=== PATIENT | female | born 1995 | race Caucasian/White ===

== ENCOUNTER 2017-01-26 11:30 | Outpatient (CLI) | payer OTHER ==
[2017-01-26 12:14] LABS: APPEARANCE,URINE SLIGHTLY-CLOUDY; BILIRUBIN,URINE NEGATIVE (NEGATIVE); GLUCOSE, URINE NEGATIVE (NEGATIVE); KETONES,URINE NEGATIVE (NEGATIVE); LEUKOCYTE ESTERASE,URINE TRACE (NEGATIVE); NITRITE,URINE NEGATIVE (NEGATIVE); PROTEIN,URINE NEGATIVE (NEGATIVE); UROBILINOGEN,URINE NEGATIVE mg/dL (<2.0)
[2017-01-26 12:18] LABS: AMNISURE (ROM) NEGATIVE (NEGATIVE)
--- NOTE | 2017-01-26 12:29 | Non Stress Test Report ---
Non Stress Test Datetime Report Generated by CPN: 01/26/2017 12:29 DEMOGRAPHIC EGA NST: 39.2 INDICATION Indication for Study: Ordered by Provider MONITORING Time on Monitor: 01/26/2017 11:48 Time off Monitor: 01/26/2017 12:22 NST Duration: 34 NST INTERVENTIONS NST Interventions: None Physician Notified NST: Dr Ronald BABY A Movement : Present Contraction Frequency : none FHR Baseline : 135 Accelerations : 15X15 Decelerations : None Variability : Moderate 6-25bpm NST Review: Meets Criteria for Reactive NST NST Review and Verified By : A. Zavaleta RN NST Results: Reactive NST REPORT Report Trigger: Send Report
[2017-01-26 12:31] LABS: URINE BARBITURATES SCREEN NEGATIVE; URINE METHADONE SCREEN NEGATIVE; URINE OPIATES LOW NEGATIVE; URINE PHENCYCLIDINE SCREEN NEGATIVE
== END 2017-01-26 12:37 | disposition home or self-care (01) ==
LOC: LC 11:30
PROVIDERS: ATTEND Obstetrics & Gynecology
PROC: 4A1HXCZ Monitoring of Products of Conception, Cardiac Rate, External Approach (ICD-10-PCS; principal; 2017-01-26)
DX: O47.1 False labor at or after 37 completed weeks of gestation (principal); Z3A.39 39 weeks gestation of pregnancy
CPT/HCPCS: 59025; 80307; 81005; 84112

== ENCOUNTER 2017-01-30 05:49 | Inpatient (IN) | payer OTHER ==
[2017-01-30 06:32] LABS: AMNISURE (ROM) POSITIVE (NEGATIVE)
[2017-01-30 06:33] LABS: APPEARANCE,URINE CLOUDY; BILIRUBIN,URINE NEGATIVE (NEGATIVE); GLUCOSE, URINE NEGATIVE (NEGATIVE); KETONES,URINE NEGATIVE (NEGATIVE); LEUKOCYTE ESTERASE,URINE MODERATE (NEGATIVE); NITRITE,URINE NEGATIVE (NEGATIVE); PROTEIN,URINE NEGATIVE (NEGATIVE); URINE SPECIFIC GRAVITY 1.008; UROBILINOGEN,URINE NEGATIVE mg/dL (<2.0)
[2017-01-30] MEDS ORDERED: RINGERS SOLUTION,LACTATED 1,000 ML IV ONE (06:35)
[2017-01-30 06:50] LABS: URINE BARBITURATES SCREEN NEGATIVE; URINE METHADONE SCREEN NEGATIVE; URINE OPIATES LOW NEGATIVE; URINE PHENCYCLIDINE SCREEN NEGATIVE
[2017-01-30 07:23] LABS: ABSOLUTE BASOPHILS # (AUTO) 0.1 10^3/uL (0.0-0.2); ABSOLUTE EOSINOPHILS # (AUTO) 0.3 10^3/uL (0.0-0.6); ABSOLUTE LYMPHOCYTES (AUTO) 1.9 10^3/uL (0.5-4.7); ABSOLUTE MONOCYTES (AUTO) 0.6 10^3/uL (0.1-1.4); ABSOLUTE NEUT (AUTO) 8.8 10^3/uL (1.7-8.2); BASOPHILS % (AUTO) 0.6 % (0-2); EOSINOPHILS % (AUTO) 2.2 % (0-6); HEMATOCRIT 31.4 % (36.0-47.0); HEMOGLOBIN 10.3 g/dL (12.0-15.5); HGB HCT DIFFERENCE -0.5; LYMPHOCYTES % (AUTO) 16.4 % (13-45); MEAN CORPUSCULAR HGB CONC 32.8 g/dL (32.0-36.0); MEAN CORPUSCULAR VOLUME 76 fl (80-97); MONOCYTES % (AUTO) 5.2 % (3-13); RED BLOOD COUNT 4.12 10^6/uL (3.72-5.28); RED CELL DISTRIBUTION WIDTH 15.7 % (11.5-14.0); SEGMENTED NEUTROPHILS % (AUTO) 75.6 % (42-78); WHITE BLOOD COUNT 11.7 10^3/uL (4.0-10.5)
[2017-01-30] MEDS ORDERED: LIDOCAINE 1% INJ-PF (10 MG/ML) 30 ML SDV ONE (08:00)
[2017-01-30] MEDS ORDERED: MISOPROSTOL 0.2 MG TABLET ONE (08:00)
[2017-01-30] MEDS ORDERED: OXYTOCIN/NORMAL SALINE 20 UNIT/1,000 ML RTUINJ ONE (08:00)
[2017-01-30] MEDS ORDERED: FENTANYL CITRATE INJ/PF 100 MCG/2 ML AMPUL ONE (11:21)
[2017-01-30] MEDS ORDERED: EPHEDRINE SULFATE INJ 50 MG/1 ML AMPULE ONE (11:21)
[2017-01-30] MEDS ORDERED: BUPIVACAINE HCL 0.25 % INJ/PF (2.5 MG/1 ML) 30 ML VIAL ONE (11:22)
[2017-01-30] MEDS ORDERED: FENTANYL/BUPIVACAINE/NS/PF 200 MCG/100 ML RTUINJ EPI ONE (11:22)
[2017-01-30] MEDS ORDERED: PHENYLEPHRINE HCL INJ/PF 10 MG/1 ML SDV ONE (11:22)
--- NOTE | 2017-01-30 13:28 | L&D Progress Notes ---
PROGRESS NOTES Datetime Report Generated by CPN: 01/30/2017 13:28 PROGRESS NOTE Impression: Premature Rupture of Membranes Procedures: Sterile Vag Exam Plan: Continue Present Management; Augmentation Informed Consent Obtained: Vaginal Delivery; Risks, Benefits and Alternatives Discussed Vital Signs : Reviewed; Within Normal Limits Comment: S: reports complete pain relief from epidural placement O: VSS, pit @ 20mu/min, cervix as stated A: PROM-stable, progressing P: continue to reposition, reassess with constant perineal pressure/earlier prn. Anticipate VAGINAL EXAM Dilatation: 8 Dilatation: 4 Effacement: 100 Effacement: 50 Station: -1 Station: 0 Contractions: q2min MEMBRANES Membranes: Ruptured Membranes: Ruptured Amniotic Fluid Color: Clear FETUS A FHR - Baseline: 135 Monitoring: External US Variability: Moderate 6-25bpm Accelerations: 15X15 Decelerations: Early; Variable : 39.6 Presentation: Vertex SIGNATURE SIGNATURE: [id number] SIGNATURE: [id number] SIGNATURE: [id number] Assignment: Brynn Roblero MD Signature: with User ID: [email or web address], Addendum/Amendment: entry for 1256 : with User ID: [email or web address], Addendum/Amendment: entry for 1256
[2017-01-30] MEDS ORDERED: NA PHOS,M-B/NA PHOS,DI-BA (ADULT) 133 ML ENEMA PR PRN (14:29)
[2017-01-30] MEDS ORDERED: GLYCERIN/WITCH HAZEL LEAF 1 EACH MED..PAD TP PRN (14:29)
[2017-01-30] MEDS ORDERED: DIPH/PERTUSS(ACELL)/TETANUS VAC/PF 0.5 ML SYR (>=10YO) IM PRN (14:29)
[2017-01-30] MEDS ORDERED: PROMETHAZINE HCL 25 MG TABLET PO PRN (14:29)
[2017-01-30] MEDS ORDERED: OXYTOCIN/NORMAL SALINE 20 UNIT/1,000 ML RTUINJ IV PRN (14:29)
[2017-01-30] MEDS ORDERED: ACETAMINOPHEN WITH CODEINE #3 TABLET PO PRN (14:29)
[2017-01-30] MEDS ORDERED: MEASLES,MUMPS&RUBELLA VACC/PF 0.5 ML VIAL SUBCUT PRN (14:29)
[2017-01-30] MEDS ORDERED: DIBUCAINE 1% OINTMENT 28 GM TP PRN (14:29)
[2017-01-30] MEDS ORDERED: PROMETHAZINE HCL INJ 25 MG/1 ML VIAL IV PRN (14:29)
[2017-01-30] MEDS ORDERED: DIPHENHYDRAMINE HCL 25 MG CAPSULE PO PRN (14:29)
[2017-01-30] MEDS ORDERED: ACETAMINOPHEN 650 MG SUPP.RECT PR PRN (14:29)
[2017-01-30] MEDS ORDERED: MAGNESIUM HYDROXIDE SUSP 30 ML UDCUP PO PRN (14:29)
[2017-01-30] MEDS ORDERED: PROMETHAZINE HCL 25 MG SUPP.RECT PR PRN (14:29)
[2017-01-30] MEDS ORDERED: BENZOCAINE/MENTHOL AEROSOL SPRAY 56 ML TOP PRN (14:29)
[2017-01-30] MEDS ORDERED: PSEUDOEPHEDRINE HCL 30 MG TABLET PO PRN (14:29)
--- NOTE | 2017-01-30 17:05 | Admission Physical ---
Datetime Report Generated by CPN: 01/30/2017 17:05 CURRENT ADMISSION Chief Complaint: Suspected Ruptured Membranes Indication for Induction: Not Applicable Indication for Induction: Term, Intrauterine ; No Active Labor; Ruptured Membranes Admit Plan: Admit to Unit; Initiate Labor Protocol ALLERGIES Medication Allergies: No Medication Allergies: NKA Latex: No Latex Allergies Food Allergies: N/A Environmental Allergies: N/A OBSTETRICAL HISTORY EDC: 01/31/2017 00:00 : 2 Para: 1 Term: 1 : 0 SAB: 0 IAB: 0 Ectopic: 0 Livin Cesareans: 0 VBACs: 0 Multiple Births: 0 Gestational Diabetes: No Rh Sensitization: No Incompetent Cervix: No MADELIN: No Infertility: No ART Treatment: No Uterine Anomaly: No IUGR: No Hx Previous C/S: No Macrosomia: No Hx Loss/Stillborn: No PIH: No Hx : No Placenta Previa/Abruption: No Depression/PP Depression: No PTL/PROM: No Post Hemorrhage: No Current Procedures: Ultrasound; NST Obstetrical History Comments: G1 baby girl 2013 G2 current SEE RECORDS Alcohol: No Marijuana : No Cocaine: No Other Illicit Drugs: No Cigarettes: Light Tobacco Smoker. 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 Surgery: No Heart Disease: No Hosp/Surgery: No Autoimmune Disorder: No Anesthetic Complications: No Kidney Disease: No Abnormal Pap Smear: No Neuro/Epilepsy: No Psychiatric Disorders: No Other Medical Diseases: No Hepatitis/Liver Disease: No Significant Family History: No Varicosities/Phlebitis: No Trauma/Violence : No Thyroid Dysfunction: No INFECTIOUS HISTORY Gonorrhea: No Genital Herpes: No Chlamydia: No Tuberculosis: No Syphilis: No Hepatitis: No HIV/AIDS Exposure: No Rash or Viral Illness: No HPV: No PHYSICAL EXAM General: Normal HEENT: Normal Neurologic: Normal Thyroid: Deferred Heart: Normal Lungs: Normal Breast: Deferred Back: Normal Abdomen: Normal Genitourinary Exam: Normal Extremities: Normal DTRs: Normal Pelvic Type: Adequate Vital Signs: Reviewed; Within Normal Limits VAGINAL EXAM Dilatation: 8 Dilatation: 4 Effacement: 100 Effacement: 50 Station: -1 Station: 0 Contraction Comments: q2min MEMBRANES Membranes: Ruptured Membranes: Ruptured Amniotic Fluid Color: Clear FETUS A EGA: 39.6 Monitoring: External US FHR- Baseline: 140 Variability: Moderate 6-25bpm Accelerations: 15X15 Decelerations: None FHR Category: Category I Presentation: Vertex PLANS FOR LABOR AND DELIVERY Labor and Delivery: None Pain Management: Epidural Feeding Preference: Both Benefit of Breast Feed Discussed: Yes Circumcision: N/A INFORMED CONSENT Informed Consent Obtained: Vaginal Delivery; Risks, Benefits and Alternatives Discussed Signature: with User ID: [email or web address]
[2017-01-30] MEDS: DOCUSATE SODIUM 100 MG CAPSULE PO SCH (18:28)
[2017-01-30] MEDS: FERROUS SULFATE 325 MG TABLET PO SCH (18:28)
[2017-01-30] MEDS: IBUPROFEN 800 MG TABLET PO SCH (21:55)
[2017-01-30] MEDS: FAMOTIDINE 20 MG TABLET PO SCH (21:56)
[2017-01-31] MEDS: IBUPROFEN 800 MG TABLET PO SCH ×3 (06:13→21:19)
[2017-01-31 07:48] LABS: HEMATOCRIT 32.3 % (36.0-47.0); HEMOGLOBIN 10.4 g/dL (12.0-15.5); HGB HCT DIFFERENCE -1.1; MEAN CORPUSCULAR HEMOGLOBIN 24.6 pg (27.0-33.4); MEAN CORPUSCULAR HGB CONC 32.3 g/dL (32.0-36.0); MEAN CORPUSCULAR VOLUME 76 fl (80-97); RED BLOOD COUNT 4.24 10^6/uL (3.72-5.28); RED CELL DISTRIBUTION WIDTH 15.6 % (11.5-14.0)
[2017-01-31 09:06] VITALS: BP 104/63
[2017-01-31] MEDS: SENNOSIDES/DOCUSATE 8.6-50 MG 1 EACH TABLET PO SCH (09:33)
[2017-01-31] MEDS: FERROUS SULFATE 325 MG TABLET PO SCH ×2 (09:34→17:44)
[2017-01-31] MEDS: DOCUSATE SODIUM 100 MG CAPSULE PO SCH ×2 (09:34→17:44)
[2017-01-31] MEDS: FAMOTIDINE 20 MG TABLET PO SCH ×2 (09:34→21:19)
[2017-01-31] MEDS: PRENATAL VITAMIN W-O CA NO5/FE FUMARATE/FA CAPSULE PO SCH (09:35)
--- NOTE | 2017-01-31 10:55 | PDOC PROGRESS REPORT ---
Subjective-OB Subjective: Post Delivery Day: 22 year old. Denies any needs at this time Doing well, no c/o, breast feeding, eating well, voiding Physical Exam (OB) Vital Signs: Temp Pulse Resp BP Pulse Ox 98.1 F 71 14 104/63 99 01/31/17 08:35 01/31/17 08:35 01/31/17 08:35 01/31/17 08:35 01/31/17 08:35 Intake & Output 01/30/17 01/31/17 02/01/17 06:59 06:59 06:59 Intake Total 500 Balance 500 Weight 84 kg - Lochia Lochia Amount: Small 10-25 ml Lochia Color: Rubra/Red - Abdomen Description: Tender, Soft Hernia Present: No Fundal Description: Firm, Midline Fundal Height: u/u - u/2 Objective-Diagnostic Laboratory: 01/31/17 07:20 01/31/17 07:20 WBC 14.0 H RBC 4.24 Hgb 10.4 L Hct 32.3 L MCV 76 L MCH 24.6 L MCHC 32.3 RDW 15.6 H Plt Count 146 L Assessment and Plan(PN) - Assessment and Plan (1) Delivery normal Is this a current diagnosis for this admission?: Yes (2) Limited care, antepartum Is this a current diagnosis for this admission?: Yes - Time Spent with Patient Time with patient: Less than 15 minutes Medications reviewed and adjusted accordingly: Yes - Disposition Anticipated Discharge: Home Within: within 24 hours
[2017-02-01] MEDS: IBUPROFEN 800 MG TABLET PO SCH ×2 (05:40→14:11)
[2017-02-01] MEDS: FAMOTIDINE 20 MG TABLET PO SCH (10:07)
[2017-02-01] MEDS: FERROUS SULFATE 325 MG TABLET PO SCH ×2 (10:07→17:38)
[2017-02-01] MEDS: DOCUSATE SODIUM 100 MG CAPSULE PO SCH ×2 (10:07→17:38)
[2017-02-01] MEDS: SENNOSIDES/DOCUSATE 8.6-50 MG 1 EACH TABLET PO SCH (10:07)
[2017-02-01] MEDS: PRENATAL VITAMIN W-O CA NO5/FE FUMARATE/FA CAPSULE PO SCH (10:07)
--- NOTE | 2017-02-01 10:55 | PDOC DISCHARGE SUMMARY ---
Final Diagnosis Discharge Date: 02/01/17 - Final Diagnosis (1) Delivery normal Is this a current diagnosis for this admission?: Yes (2) Limited care, antepartum Is this a current diagnosis for this admission?: Yes Discharge Data - Discharge Medication Home Medications: No Home Medications 01/26/17 Reason(s) for Admission: Onset of Labor, PROM Procedures: NST Intrapartum Procedure(s): Spontaneous Vaginal Delivery Complication(s): Laceration-Labial Laceration-Degree: 1st - Diagnosis Test Laboratory: Temp Pulse Resp BP Pulse Ox 98.1 F 71 14 104/63 99 02/01/17 08:57 02/01/17 08:57 02/01/17 08:57 01/31/17 08:35 02/01/17 08:57 01/30/17 01/30/17 01/31/17 06:00 07:10 07:20 RBC 4.12 4.24 Hgb 10.3 L 10.4 L Hct 31.4 L 32.3 L Urine Opiates Screen NEGATIVE - Discharge information/Instructions Discharge Activity: Balance Activity w/Rest, Pelvic Rest, No tub bath Discharge Diet: Regular Disposition: HOME, SELF-CARE Follow up with: [facility] in: 4, Weeks
--- NOTE | 2017-02-02 12:49 | Delivery Summary ---
Del Sum A-C Datetime Report Generated by CPN: 02/02/2017 12:48 DELIVERY PERSONNEL DELIVERY PERSONNEL: [id number] Delivery Doctor:: Navya Hedrick CNM Labor and Delivery Nurse:: Crystal Wyatt RN Nursery Nurse:: JERICHO BLEDSOE Student Observers:: SN Laura EVANS, SN Cad Designer Drafter/TEMPORARY DATA ENTRY CLERK: Giovanna León CHOKE REAMER Additional Personnel: : Renate Leggett RN MATERNAL INFORMATION Delivery Anesthesia: Epidural Medications After Delivery: Pitocin Bolus-Please Comment; Pitocin Drip 20 Units/1000ml NSS Maternal Complications: None Other Maternal Complications: PROM Provider Comments: Pt. progressed to c/c/+2 with urge to push, began pushing and went on to deliver a viable baby girl in TIMOTEO position through a loose nuchal cord. Pt. placed on maternal abdomen. Vigorious respiratory effort and cry with tactile stimulation. Cord clamped x2 and cut by FOB with cessation of pulsation (3vc noted). Placenta delivered spontaneousy intact encarnacion with with appears to be a velementous insertion. Fundus firm at U-2, bleeding stable. Vaginal and perineal inspection revealed 2 small left labial abrasions as stated above. Mom and baby stable and skin to skin at this time. LABOR SUMMARY EDC: 01/31/2017 00:00 No. Babies in Womb: 1 Attempted: No Labor Anesthesia: Epidural LABOR INFORMATION Reason for Induction: Not Applicable Onset of Labor: 01/30/2017 10:30 Complete Dilatation: 01/30/2017 13:55 Oxytocin: Augmentation Group B Beta Strep: negative Antibiotics # of Doses: 0 Steroids Given: None Reason Steroids Not Administered: Not Applicable MEMBRANES Membranes Rupture Method: Spontaneous Rupture of Membranes: 01/29/2017 18:00 Length of Rupture (hr): 20.12 Amniotic Fluid Color: Clear Amniotic Fluid Amount: Moderate Amniotic Fluid Odor: Normal STAGES OF LABOR Stage 1 hr: 3 Stage 1 min: 25 Stage 2 hr: 0 Stage 2 min: 12 Stage 3 hr: 0 Stage 3 min: 6 Total Time in Labor hr: 3 Total Time in Labor min: 43 VAGINAL DELIVERY Episiotomy: None Laceration #1: None Laceration Extension #1: N/A Other Laceration: SUPERFICIAL LT LABIAL ABRASION X 2 Laceration Repair: Not Applicable Laceration Repair Note: superficial abrasions hemostatic Sponge Count Correct: N/A Sharps Count Correct: N/A CSECTION DELIVERY CSection Incision: N/A BABY A INFORMATION Infant Delivery Date/Time: 01/30/2017 14:07 Method of Delivery: Vaginal Method of Delivery: Vaginal Born in Route : No : N/A Forceps: N/A Vacuum Extraction: N/A Shoulder Dystocia : No PRESENTATION/POSITION BABY A Presentation: Cephalic Cephalic Presentation: N/A Vertex Position: Left Occipital Anterior Breech Presentation: N/A PLACENTA INFORMATION BABY A Placenta Delivery Time : 01/30/2017 14:13 Placenta Method of Delivery: Spontaneous Placenta Method of Delivery: Spontaneous Placenta Status: Delivered SCORES BABY A Heart Rate 1 min: >100 bpm Resp Effort 1 min: Good Cry Reflex Irritability 1 min: Cough or Sneeze or Pulls Away Muscle Tone 1 min: Active Motion Color 1 min: Body Mccaskill, Extremities Blue Resuscitation Effort 1 min: Tactile Stimulation SCORE 1 MIN: 9 Heart Rate 5 min: >100 bpm Resp Effort 5 min: Good Cry Reflex Irritability 5 min: Cough or Sneeze or Pulls Away Muscle Tone 5 min: Active Motion Color 5 min: Completely Mccaskill Resuscitation Effort 5 min: Tactile Stimulation SCORE 5 MIN: 10 INFANT INFORMATION BABY A Gestational Age at Delivery: 39.6 Gestational Status: Full Term- 39- 40.6 Weeks Infant Outcome : Liveborn Infant Condition : Stable Sex: Female Infant Sex: Female IDENTIFICATION BABY A Infant Verification Date/Time: 01/30/2017 14:22 ID Band Number: [id number] Mother's Name Verified: Yes Infant RN Verifying : Fatemeh Serra, RNC/ CPendmulugeta, RN CORD INFORMATION BABY A No. Cord Vessels: 3 Nuchal Cord : Around Neck x1, Loose Cord Blood Taken: Yes-For Eval (Mom's Blood Type - or O+) Infant Suction: None ASSESSMENT BABY A Infant Complications: Other Complications- Other: PROM- 01/29/17 @ 1800 Physical Findings at Delivery: Within Normal Limits Infant Respirations: Appears Normal Licensing Registration Examiner/ALS Called : No Infant Care By: JERICHO HOLLIDAY Transferred To: Remains with Mother BABY B INFORMATION : N/A SIGNATURES Assignment: Brynn Roblero MD Signature: with User ID: [email or web address] : with User ID: [email or web address]
== END 2017-02-01 22:00 | disposition home or self-care (01) | DRG 775 ==
LOC: LC 05:49 → LR 06:37 → 2S 17:03
PROVIDERS: ADMIT Obstetrics & Gynecology; ATTEND Obstetrics & Gynecology
PROC: 10E0XZZ Delivery of Products of Conception, External Approach (ICD-10-PCS; principal; 2017-01-30)
PROC: 0HQ9XZZ Repair Perineum Skin, External Approach (ICD-10-PCS; 2017-01-30)
PROC: 4A1HXCZ Monitoring of Products of Conception, Cardiac Rate, External Approach (ICD-10-PCS; 2017-01-30)
DX: O42.02 Full-term premature rupture of membranes, onset of labor within 24 hours of rupture (principal); O70.0 First degree perineal laceration during delivery; O99.334 Smoking (tobacco) complicating childbirth; F17.210 Nicotine dependence, cigarettes, uncomplicated; O69.81X0 Labor and delivery complicated by cord around neck, without compression, not applicable or unspecified; Z3A.39 39 weeks gestation of pregnancy; Z37.0 Single live birth
CPT/HCPCS: 36415; 80307; 81005; 84112; 85025; 85027; 86592; 86850; 86900; 86901; 88307; J2370; J2590; J3010; J3490